=== PATIENT | male | born 1935 | race Caucasian/White ===

== ENCOUNTER 2016-07-06 13:01 | Inpatient (IN) | payer MEDICARE, BC ==
--- NOTE | ~2016-07-06 | HP ---
Unit #: [id number] #: [id number] Patient: NAZ ESTEBAN [id number] [facility]. [place], [place] [address] [id number] E MR#: [id number] NAME: NAZ ESTEBAN ROOM: Age: 80 Sex: M Admission Date: 07/06/2016 : 1935 Attending Physician: Tiffanie Hartman M.D. Primary Care Physician: Anoop Hanna M.D. HISTORY AND PHYSICAL CHIEF COMPLAINT Weakness. HISTORY OF PRESENT ILLNESS The patient is a 80-year-old male with past medical history of hypertension, hyperlipidemia, anxiety, dementia who presented to the emergency department for evaluation of the above. The patient apparently has been increasingly generally weak and with decreased appetite for the past two days. He apparently fell to the floor from the toilet today. His was unable to get him off the floor. This has apparently happened before. He is at his baseline mental status. He did reportedly have an episode of vomiting last week. He has had an occasional loose stool. He denies any chest pain. No difficulty breathing. He reports occasional cough. He has not had fever. No urinary symptoms. In the emergency department, initial oxygen saturation was 96% on room air. Pulse 58, blood pressure 141/73. Chest x-ray shows left lower lobe infiltrate. He is being admitted to [facility] for evaluation and further treatment. He received 2 grams of Rocephin in the emergency department. PAST MEDICAL HISTORY 1. Admission to [facility] 04/04 through 04/07/2015 for left facial cellulitis. 2. Dementia. 3. Hypertension. 4. Hyperlipidemia. 5. Anxiety. PAST SURGICAL HISTORY 1. Hernia repair. 2. Eye surgery. ALLERGIES Azithromycin. HOME MEDICATIONS 1. Lipitor 40 mg daily. 2. Klonopin 0.5 mg b.i.d. 3. Triamterene/hydrochlorothiazide daily. 4. Lopressor 50 mg daily. Unit #: [id number] #: [id number] Patient: NAZ ESTEBAN 5. Aspirin 325 mg daily. 6. Namzaric 7/10 daily. SOCIAL HISTORY The patient lives with his . He typically walks without assistance. There is no tobacco or alcohol use. The patient is a FULL CODE. FAMILY HISTORY Notable for hypertension. REVIEW OF SYSTEMS A complete review of systems is negative except as indicated in the HPI. PHYSICAL EXAMINATION VITAL SIGNS: Temperature 97.3, pulse 58, respirations 16, blood pressure 141/73, oxygen saturation 96% on room air. GENERAL: The patient is a male who is awake and alert. HEENT: Head is atraumatic. Mucous membranes are dry. NECK: Supple. Trachea is midline. LUNGS: Relatively clear to auscultation bilaterally with no increased work of breathing. HEART: Regular rate and rhythm. ABDOMEN: Soft, nontender. Bowel sounds present in all four quadrants. EXTREMITIES: Nontender with no pedal edema. NEUROLOGIC: Patient is oriented to person and place, at baseline per his . He is moving all extremities. PSYCHIATRIC: The patient has a flat affect. He is cooperative. SKIN OF EXAMINED AREAS: Warm and dry. DIAGNOSTIC STUDIES LABORATORY: Complete blood count notable for hemoglobin 16.9, hematocrit 49.8. Comprehensive metabolic panel notable for chloride of 98, bicarb 32, glucose 137, BUN 32, creatinine 1.7, calcium 10.4. Troponin less than 0.05. Urinalysis essentially normal. IMAGING: Chest x-ray shows left lower lobe infiltrate. CT of the head shows nothing acute. CARDIOVASCULAR: EKG shows sinus bradycardia with first-degree AV block at a rate of 59 beats per minute. ASSESSMENT The patient is a 80-year-old male with: 1. Pneumonia, community acquired. 2. Acute kidney injury. The patient's creatinine was 1 on 04/07/2015, it is 1.7 today, it has been as high as 1.3 on 09/11/2009. He is on triamterene/hydrochlorothiazide which could be contributing. He has also not been eating. 3. Hypercalcemia. 4. Generalized weakness. 5. Hypertension. 6. Hyperlipidemia. 7. Anxiety. 8. Dementia. PLAN 1. Admit to intermediate level. Unit #: [id number] #: [id number] Patient: NAZ ESTEBAN 2. Normal saline at 75 mL per hour. 3. Healthy-heart diet if passes bedside swallow. 4. Blood cultures x2. 5. Sputum culture and sensitivity. 6. Procalcitonin level. 7. Supplemental oxygen 2-4 liters to maintain saturations greater than 92%. 8. DuoNeb q.4 h. p.r.n. 9. Mucinex 600 mg p.o. b.i.d. 10. Levaquin 750 mg IV daily. 11. Check CPK. 12. Bladder scan and check postvoid residual. 13. Strict I's and O's. 14. Ionized calcium. 15. Intact PTH. 16. Serial cardiac enzymes. 17. PT/OT to evaluate and treat. 18. Bedrest. 19. Fall precautions. 20. P.r.n. Tylenol. 21. Repeat labs in the morning. 22. SCDs for DVT prophylaxis. 23. Additional workup and consultants based on above. Dictated by Ingris Lira/mariam TD: 07/06/2016 18:04 JOB #: [id number] HISTORY AND PHYSICAL X Shaista Gonzalez MD X HISTORY AND PHYSICAL
--- NOTE | ~2016-07-06 | CR72 ---
[facility] A Service of [facility] RADIOLOGY TEXT RESULTS PATIENT: NAZ ESTEBAN LOCATION: [place] [address] : [birth year] UNIT #: [id number] AGE: [address]: Tremaine John MD SEX: M ORDER DR: [id number] [facility] [address] [place], [place] [address] [id number] E MR#: [id number] Acc #: [id number] NAME: NAZ ESTEBAN. : 1935 SEX: M STUDY DATE/TIME: 07/06/2016 12:24 UNIT: [facility] ROOM: STUDY DESCRIPTION: CR Chest Single View Portable Attending Physician: Tiffanie Hartman M.D. Ordering Physician: Tiffanie Hartman M.D. Primary Care Physician: Anoop Hanna M.D. MEDICAL IMAGING REPORT This report is preliminary unless electronic signature is present EXAM Single view of the chest, 07/06/2016 at 12:24 hours COMPARISON Single view of the chest, 04/04/2015 at 20:14 hours HISTORY Weakness and shortness of air since 07/05/2016 FINDINGS Single view of the chest was obtained. Mild infiltrate/atelectasis is seen in the left lung base just above the mid to lateral left hemidiaphragm. Minimal atelectatic changes are seen in the right lung base too. No pleural effusion or pneumothorax. The heart is of normal size. Dictated by... Linda Machado M.D. THIS IS AN ELECTRONICALLY VERIFIED REPORT Linda Machado M.D. at 07/07/2016 4:57 PM CPR/keyla TD: 07/06/2016 14:36 JOB #: [id number] MEDICAL IMAGING REPORT COPY
--- NOTE | ~2016-07-06 | EKG ---
PATIENT: NAZ ESTEBAN UNIT #: [id number] Ventricular Rate: 59 BPM Atrial Rate: 59 BPM P-R Interval: 212 ms QRS Duration: 122 ms Q-T Interval: 426 ms QTC Calculation(Bezet): 421 ms P Salem: 22 degrees Calculated R Salem: -50 degrees Calculated T Salem: -23 degrees Diagnosis Line: Sinus bradycardia with 1st degree A-V block Diagnosis Line: Left anterior fascicular block Diagnosis Line: Left ventricular hypertrophy with QRS widening Diagnosis Line: Nonspecific ST abnormality Diagnosis Line: Abnormal ECG Diagnosis Line: When compared with ECG of 27-FEB-2009 15:12, Diagnosis Line: T wave inversion more evident in Inferior leads Diagnosis Line: Nonspecific T wave abnormality now evident in Diagnosis Line: Lateral leads Diagnosis Line: Confirmed by FABRICE RICHARDS MD ([id number]) on 07/07/2016 Diagnosis Line: 6:20:03 PM INTERPRETING MD: SUSIE MCCAIN
--- NOTE | ~2016-07-06 | DS ---
Unit #: [id number] #: [id number] Patient: NAZ ESTEBAN [id number] [address] [place], [place] [address] [id number] I MR#: [id number] NAME: NAZ ESTEBAN. ROOM: 55 Age: 80 Sex: M Admission Date: 07/06/2016 : 1935 Discharge Date: 07/08/2016 Attending Physician: Tremaine John M.D. Primary Care Physician: Anoop Hanna M.D. DISCHARGE SUMMARY CHIEF COMPLAINT Weakness. DIAGNOSES 1. Hypertension. 2. Acute kidney injury. 3. Hyperlipidemia. 4. Anxiety. 5. Dementia. 6. Bronchitis. HISTORY OF PRESENT ILLNESS The patient is a 80-year-old male with multiple medical problems, including hypertension, hyperlipidemia, anxiety and dementia. He was brought to the emergency room on the first because of an episode of weakness. Apparently he fell down at home. HOSPITAL COURSE The patient was noted to have an acute kidney injury and was started on IV fluids. With a concern for pneumonia he was started on antimicrobials. Official reading of the chest x-ray was not suggestive of any pneumonia. He was continued on antimicrobials for bronchitis. He did complain of decreased appetite which is slowly improving. The decreased appetite started last Monday. I encouraged him to try to eat as much as he can. I explained to him that if he is not feeling better in a week or so he can follow up with his primary care physician for further management, if he needs Remeron or any other medication for stimulating appetite. His blood pressures have been stable for hypertension. He was seen by physical therapy and occupational therapy. They recommended subacute rehab. The patient and his want to go home with home healthcare at home, physical therapy. Will discharge the patient home. The patient is doing clinically better and will be discharged home today. PHYSICAL EXAMINATION VITALS: On the day of discharge, temperature 98.8, pulse rate 75, respiratory rate 16, blood pressure 160/83. The patient is alert and oriented times three, lying in the bed in no acute distress. HEENT: Normocephalic, atraumatic. No icterus. Pupils equally round and reactive to light and accommodation. Extraocular muscles intact. NECK: Supple. No jugular venous distension. HEART: S1 and S2. Regular rate and rhythm. Unit #: [id number] #: [id number] Patient: NAZ ESTEBAN CHEST: Bilateral air entry. Clear to auscultation. ABDOMEN: Soft and nontender. DISCHARGE MEDICATIONS 1. Combivent 3 ml q.4 h. p.r.n. shortness of breath. 2. Klonopin 0.5 mg p.o. b.i.d. at home. Kindly note we are not giving any new prescription. He will be taking the one he has at home. 3. Metoprolol 50 mg p.o. daily. 4. Memantine 7.5/10 mg p.o. daily. 5. Lipitor 40 mg daily. 6. Aspirin 325 mg daily. 7. Levaquin 750 mg p.o. daily for 2 more days. 8. Kindly note I am stopping his triamterene/HCTZ. Will defer to primary care to resume when he follows with them as an outpatient. Total time spent in his care 28 minutes. Dictated by... Ingris Worthy TD: 07/08/2016 11:23 JOB #: [id number] DISCHARGE SUMMARY X X DISCHARGE SUMMARY
--- NOTE | ~2016-07-06 | CT71 ---
[facility] A Service of [facility] RADIOLOGY TEXT RESULTS PATIENT: NAZ ESTEBAN LOCATION: [facility] [id number] : [birth year] UNIT #: [id number] AGE: [address]: Shaista Gonzalez MD SEX: M ORDER DR: [id number] [facility] [address] [place], [place] [address] [id number] I MR#: [id number] Acc #: [id number] NAME: NAZ ESTEBAN. : 1935 SEX: M STUDY DATE/TIME: 07/06/2016 13:14 UNIT: [facility] ROOM: [facility] STUDY DESCRIPTION: CT Head Wo Contrast Attending Physician: Shaista Gonzalez M.D. Ordering Physician: Tiffanie Hartman M.D. Primary Care Physician: Anoop Hanna M.D. MEDICAL IMAGING REPORT This report is preliminary unless electronic signature is present EXAM Head CT 07/06 INDICATIONS Weakness that started this morning with unsteady gait. TECHNIQUE This CT exam was performed with one or more of the following radiation dose reduction techniques: automatic control, adjustment of mA and/or kV according to patient size, and iterative reconstruction. FINDINGS Axial images were obtained from the base to the vertex without contrast. Comparison made 04/06/2015. Ventricular size and configuration remain normal. Chronic small vessel ischemic changes are present in the white matter. No acute infarct or hemorrhage is seen. There are no masses. The patient has a prosthetic left globe. There are no skull fractures. The mastoid air cells and middle ear cavities are clear. IMPRESSION No acute intracranial abnormalities. There is atrophy with advanced chronic small vessel ischemic disease in the white matter. Dictated by... Kevin White Jr., M.D. THIS IS AN ELECTRONICALLY VERIFIED REPORT Kevin White Jr., M.D. at 07/07/2016 8:09 AM VIMAL/silas TD: 07/06/2016 15:17 JOB #: [id number] [facility] A Service of [facility] & [facility] RADIOLOGY TEXT RESULTS PATIENT: NAZ ESTEBAN LOCATION: [facility] [id number] : 36 UNIT #: [id number] AGE: [address]: Shaista Gonzalez MD SEX: M ORDER DR: MEDICAL IMAGING REPORT COPY
[2016-07-06 12:49] LABS: BASOPHIL# 0.1 X10e3 (0-0.3); EOSINOPHIL# 0.2 X10e3 (0-0.7); EOSINOPHIL% 2.4 % (0.0-7.0); HEMATOCRIT 49.8 % (38.0-50.0); HEMOGLOBIN 16.9 gm/dL (13.0-16.0); LYMPHOCYTE# 0.9 X10e3 (1.0-3.5); LYMPHOCYTE% 8.9 % (17.0-45.0); MEAN CELL VOLUME 92.8 FL (83-96); MEAN CORPUSCULAR HEMOGLOBIN 31.5 PG (28-34); MEAN PLATELET VOLUME 9.2 FL (6.5-11.5); MONOCYTE# 0.9 X10e3 (0-1.0); MONOCYTE% 9.1 % (3.0-12.0); NEUTROPHIL# 8.1 X10e3 (1.5-7.1); NEUTROPHIL% 78.6 % (40-75); PLATELET COUNT 174 X10e3 (140-420); RED BLOOD COUNT 5.37 X10e (3.90-5.60); RED CELL DISTRIBUTION WIDTH 13.1 % (11.0-15.5); WHITE BLOOD COUNT 10.3 X10e3 (4.0-10.5)
[2016-07-06 12:53] LABS: DIFF IND NO
[~2016-07-06 13:01] MED LIST: ALPRAZOLAM PO; AMBIEN PO; ARISTOCORT A 0.15 GM TOP; ASPIRIN ENTERI325 M1 PO; ASPIRINEC PO; BYSTOLIC5 MG PO; CLONAZEPAM0.5 MG PO; KEFLEX500 MG PO; LEVAQUIN750 MG PO; LIPITOR PO; PERCOCET5/325 PO; TOPROL XL50 MG PO; TRIAMTERENE-HC1 EACH PO; VICODIN PO; ZOFRAN PO; ZYRTEC PO
[2016-07-06 13:15] LABS: ALBUMIN SERUM 4.3 g/dL (3.5-5.0); BILIRUBIN, DIRECT 0.2 mg/dL (0.0-0.2); BILIRUBIN,INDIRECT 0.7 mg/dL (0.0-0.9); BILIRUBIN,TOTAL 0.9 mg/dL (0.2-2.0); BUN/CREATININE RATIO 18.82; CALCIUM SERUM 10.4 mg/dL (8.4-10.2); CREATININE SERUM 1.7 mg/dL (0.6-1.4); GLOM FILT RATE Estimated 41.5 mL/min (>60); POTASSIUM 4.5 mmol/L (3.5-5.1); PROTEIN TOTAL SERUM 7.6 g/dL (6.0-8.3)
[2016-07-06 14:07] LABS: POC - CKMB 3.9 ng/mL (0.0-7.9); POC - TROPONIN <0.05 ng/mL (<=0.05)
[2016-07-06 15:32] LABS: URINE SOURCE CLEAN CATCH
[2016-07-06 15:32] LABS: POC - CKMB 7.4 ng/mL (0.0-7.9); POC - TROPONIN <0.05 ng/mL (<=0.05)
[2016-07-06 15:38] LABS: URINE APPEARANCE CLEAR; URINE BILIRUBIN NEG (NEG); URINE BLOOD NEG (NEG); URINE COLOR YELLOW; URINE GLUCOSE NEG (NEG); URINE KETONE TRACE (NEG); URINE LEUKOCYTE ESTERASE NEG (NEG); URINE NITRATE NEG (NEG); URINE PH 7.5 (5-8); URINE PROTEIN NEG (NEG); URINE SPECIFIC GRAVITY 1.019 (1.003-1.035)
[2016-07-06 15:40] LABS: CULTURE INDICATED? NO
[2016-07-06] MEDS ORDERED: KLONOPIN0.5 MG PO (16:01)
[2016-07-06] MEDS ORDERED: LIPITOR40 MG PO (16:01)
[2016-07-06] MEDS ORDERED: TRIAMTERENE-HC1 EAC1 PO (16:02)
[2016-07-06] MEDS ORDERED: LOPRESSOR PO (16:03)
[2016-07-06] MEDS ORDERED: BAYER ASPIRIN325 M1 PO (16:04)
[2016-07-06] MEDS ORDERED: NAMZARIC 7 MG-1 EACH (16:05)
[2016-07-06 19:49] LABS: %MB 2.9 % (0.0-4.0); MB 4.8 ng/ml
[2016-07-07 05:12] LABS: HEMATOCRIT 45.9 % (38.0-50.0); HEMOGLOBIN 15.6 gm/dL (13.0-16.0); MEAN CELL VOLUME 92.8 FL (83-96); MEAN CORPUSCULAR HEMOGLOBIN 31.6 PG (28-34); MEAN PLATELET VOLUME 9.2 FL (6.5-11.5); RED BLOOD COUNT 4.94 X10e (3.90-5.60); RED CELL DISTRIBUTION WIDTH 13.1 % (11.0-15.5); WHITE BLOOD COUNT 8.3 X10e3 (4.0-10.5)
[2016-07-07 06:07] LABS: ALBUMIN SERUM 3.6 g/dL (3.5-5.0); BILIRUBIN,TOTAL 0.5 mg/dL (0.2-2.0); CALCIUM SERUM 9.5 mg/dL (8.4-10.2); CREATININE SERUM 1.4 mg/dL (0.6-1.4); POTASSIUM 4.2 mmol/L (3.5-5.1); PROTEIN TOTAL SERUM 6.6 g/dL (6.0-8.3)
[2016-07-07 10:07] LABS: %MB 2.3 % (0.0-4.0); MB 4.5 ng/ml
[2016-07-08 06:31] LABS: BASOPHIL# 0.1 X10e3 (0-0.3); BASOPHIL% 0.8 % (0-2.5); EOSINOPHIL# 0.3 X10e3 (0-0.7); EOSINOPHIL% 3.1 % (0.0-7.0); HEMATOCRIT 43.9 % (38.0-50.0); LYMPHOCYTE# 0.9 X10e3 (1.0-3.5); LYMPHOCYTE% 10.7 % (17.0-45.0); MEAN CELL VOLUME 92.1 FL (83-96); MEAN CORPUSCULAR HEMOGLOBIN 31.5 PG (28-34); MEAN CORPUSCULAR HGB CONC 34.2 g/dL (30-36); MEAN PLATELET VOLUME 8.9 FL (6.5-11.5); MONOCYTE# 0.9 X10e3 (0-1.0); MONOCYTE% 11.2 % (3.0-12.0); NEUTROPHIL# 6.1 X10e3 (1.5-7.1); NEUTROPHIL% 74.2 % (40-75); PLATELET COUNT 144 X10e3 (140-420); RED BLOOD COUNT 4.77 X10e (3.90-5.60); RED CELL DISTRIBUTION WIDTH 12.9 % (11.0-15.5); WHITE BLOOD COUNT 8.2 X10e3 (4.0-10.5)
[2016-07-08 06:37] LABS: DIFF IND NO
[2016-07-08 07:03] LABS: BLOOD UREA NITROGEN 22 mg/dL (9-23); CALCIUM SERUM 9.4 mg/dL (8.4-10.2); CARBON DIOXIDE 28 mmol/L (22-31); CHLORIDE 101 mmol/L (100-111); CREATININE SERUM 1.1 mg/dL (0.6-1.4); GLOM FILT RATE Estimated ABOVE60 mL/min (>60); GLUCOSE FASTING 98 mg/dL (70-110); POTASSIUM 4.1 mmol/L (3.5-5.1); SODIUM 138 mmol/L (135-145)
[2016-07-08] MEDS ORDERED: LEVAQUIN750 MG PO (11:35)
[2016-07-10 05:26] LABS: CALCIUM (PTHINTACT) 9.5 mg/dL (8.6-10.3)
== END 2016-07-08 16:30 | disposition home health service (06) | DRG 202 ==
LOC: CED 13:01 → CEDOF 17:20 → C5B 07-07 00:21
PROVIDERS: Emergency Medicine; Family Medicine; Internal Medicine
DX: J40 Bronchitis, not specified as acute or chronic (principal); N17.9 Acute kidney failure, unspecified; E83.52 Hypercalcemia; R53.1 Weakness; I10 Essential (primary) hypertension; E78.5 Hyperlipidemia, unspecified; F41.9 Anxiety disorder, unspecified; I44.0 Atrioventricular block, first degree; F03.90 Unspecified dementia, unspecified severity, without behavioral disturbance, psychotic disturbance, mood disturbance, and anxiety; Z79.82 Long term (current) use of aspirin; W19.XXXA Unspecified fall, initial encounter
CPT/HCPCS: 36415; 70450; 71010; 80048; 80053; 80076; 81003; 82308; 82310; 82330; 82550; 82553; 83970; 84484; 85025; 85027; 87040; 93005; 94640; 94760; 97110; 97116; 97163; 97530; 99285; G8978-GP; G8979-GP; J0696; J1956; J2405

== ENCOUNTER 2016-11-18 09:49 | Emergency (ER) | payer MEDICARE, BC ==
--- NOTE | ~2016-11-18 | CR133 ---
[facility] A Service of [facility] & [facility] RADIOLOGY TEXT RESULTS PATIENT: NAZ ESTEBAN LOCATION: [facility] : 37 UNIT #: [id number] AGE: [address]: Kristen Rowley SEX: M ORDER DR: [id number] [facility] [address] [place], [place] [address] [id number] E MR#: [id number] Acc #: [id number] NAME: NAZ ESTEBAN. : 1935 SEX: M STUDY DATE/TIME: 11/18/2016 10:15 UNIT: [facility] ROOM: STUDY DESCRIPTION: CR Forearm 2 View Rt Attending Physician: Kristen Rowley P.A.-C. Ordering Physician: Kristen Rowley P.A.-C. Primary Care Physician: Anoop Hanna M.D. MEDICAL IMAGING REPORT This report is preliminary unless electronic signature is present EXAM Right forearm 11/18/2016 1015 hours HISTORY Patient fell today with distal medial forearm pain, wrist pain, swelling and bruising. COMPARISON Right wrist films 11/18/2016. FINDINGS Two views of the radius and ulna demonstrate no definite elbow joint effusion or fracture of the radius or ulna. Bones are mildly osteopenic. There is osteoarthritic degenerative change at the wrist and elbow. IMPRESSION No fracture of the radius or ulna. Dictated by... Elisabeth Flores M.D. THIS IS AN ELECTRONICALLY VERIFIED REPORT Elisabeth Flores M.D. at 11/18/2016 2:31 PM GWEN/vitaliy TD: 11/18/2016 13:12 JOB #: [id number] MEDICAL IMAGING REPORT Page 1 of 1 COPY
--- NOTE | ~2016-11-18 | CR282 ---
[facility] A Service of [facility] & [facility] RADIOLOGY TEXT RESULTS PATIENT: NAZ ESTEBAN LOCATION: [facility] : 36 UNIT #: [id number] AGE: [address]: Kristen Rowley SEX: M ORDER DR: [id number] [facility] [address] [place], [place] [address] [id number] E MR#: [id number] Acc #: [id number] NAME: NAZ ESTEBAN. : 1935 SEX: M STUDY DATE/TIME: 11/18/2016 10:16 UNIT: [facility] ROOM: STUDY DESCRIPTION: CR Wrist Min 3 View Rt Attending Physician: Kristen Rowley P.A.-C. Ordering Physician: Kristen Rowley P.A.-C. Primary Care Physician: Anoop Hanna M.D. MEDICAL IMAGING REPORT This report is preliminary unless electronic signature is present EXAM Right wrist 3 views, 11/18/2016 10:16 hours HISTORY Patient fell today with distal medial forearm and wrist pain, swelling and bruising. FINDINGS AP, lateral and oblique views demonstrate osteopenia. There is some edema over the distal forearm adjacent to the ulna. No ulna fracture is seen. There is mild joint space loss in the radiocarpal joint. There is joint space loss in the articulation between the scaphoid trapezium and the trapezium and first metacarpal consistent with osteoarthritis. Question is raised of lucency through the neck of the scaphoid felt likely to be artifact. Suggest further evaluation with dedicated scaphoid view lobe (ulnarly deviated AP view of the wrist.) IMPRESSION Osteopenia with osteoarthritis. There is questioned lucency at the neck of the scaphoid on the AP view. Suggest further evaluation with ulnarly deviated AP scaphoid view to exclude a scaphoid fracture. STAT * RESULT Dictated by... Elisabeth Flores M.D. THIS IS AN ELECTRONICALLY VERIFIED REPORT Elisabeth Flores M.D. at 11/18/2016 2:30 PM Lance TD: 11/18/2016 11:03 JOB #: [id number] [facility] A Service of [facility] & [facility] RADIOLOGY TEXT RESULTS PATIENT: NAZ ESTEBAN LOCATION: [facility] : 36 UNIT #: [id number] AGE: [address]: Kristen Rowley SEX: M ORDER DR: MEDICAL IMAGING REPORT Page 1 of 1 COPY
--- NOTE | ~2016-11-18 | CR276 ---
[facility] A Service of [facility] RADIOLOGY TEXT RESULTS PATIENT: NAZ ESTEBAN LOCATION: [facility] : 36 UNIT #: [id number] AGE: [address]: Kristen Rowley SEX: M ORDER DR: [id number] [facility] [address] [place], [place] [address] [id number] E MR#: [id number] Acc #: [id number] NAME: NAZ ESTEBAN : 1935 SEX: M STUDY DATE/TIME: 11/18/2016 11:13 UNIT: [facility] ROOM: STUDY DESCRIPTION: CR Wrist 1 View Rt Attending Physician: Kristen Rowley P.A.-C. Ordering Physician: Kristen Rowley P.A.-C. Primary Care Physician: Anoop Hanna M.D. MEDICAL IMAGING REPORT This report is preliminary unless electronic signature is present EXAM Right wrist, ulnarly deviated view, 11/18/2016, 1113 hours. CLINICAL HISTORY Patient fell today with pain and swelling of wrist. Evaluate possible lucency through waist of the scaphoid on earlier wrist series. COMPARISON Wrist series, 11/18/2016, 1016 hours. FINDINGS Single, AP, ulnarly deviated view demonstrates a normal appearance to the scaphoid. No fracture is seen. IMPRESSION Negative right wrist. Ulnarly deviated AP scaphoid view demonstrates no scaphoid fracture. STAT * RESULT Dictated by... Elisabeth Flores M.D. THIS IS AN ELECTRONICALLY VERIFIED REPORT Elisabeth Flores M.D. at 11/18/2016 2:31 PM GWEN/ang TD: 11/18/2016 11:50 JOB #: [id number] MEDICAL IMAGING REPORT [facility] A Service of [facility] RADIOLOGY TEXT RESULTS PATIENT: NAZ ESTEBAN LOCATION: [facility] : 36 UNIT #: [id number] AGE: [address]: Kristen Rowley SEX: M ORDER DR: Page 1 of 1 COPY
[~2016-11-18 09:49] MED LIST changes: +BAYER ASPIRIN325 M1 PO; +KLONOPIN0.5 MG PO; +LIPITOR40 MG PO; +LOPRESSOR PO; +NAMZARIC 7 MG-1 EACH; +TRIAMTERENE-HC1 EAC1 PO
== END 2016-11-18 12:05 | disposition home or self-care (01) ==
LOC: CED 09:49 → CFTX 09:49
DX: S63.511A Sprain of carpal joint of right wrist, initial encounter (principal); S60.211A Contusion of right wrist, initial encounter; I10 Essential (primary) hypertension; Z87.891 Personal history of nicotine dependence; W01.10XA Fall on same level from slipping, tripping and stumbling with subsequent striking against unspecified object, initial encounter; Y92.009 Unspecified place in unspecified non-institutional (private) residence as the place of occurrence of the external cause
CPT/HCPCS: 29125; 73090; 73100; 73110; 99283